=== PATIENT | female | born 1940 | race Caucasian/White ===

== ENCOUNTER 2016-12-14 05:03 | Inpatient (IN) | payer OTHER ==
[2016-12-11 14:37] VITALS: BMI 30.2
[~2016-12-14 05:03] MED LIST: BACITRACIN 15 GM TUBE TOPICAL OINTMENT TP ONE
[2016-12-14] MEDS ORDERED: VASOPRESSIN 20 UNITS/ML VIAL IV ONE (13:37)
[2016-12-14] MEDS ORDERED: BACITRACIN 15 GM TUBE TOPICAL OINTMENT ONE (13:37)
[2016-12-14] MEDS ORDERED: PROPOFOL 20 ML ONE (13:38)
[2016-12-14] MEDS ORDERED: ROCURONIUM BROMIDE 50 MG/5 ML VIAL ONE (13:39)
[2016-12-14] MEDS ORDERED: MIDAZOLAM HCL 2 MG/2 ML SINGLE DOSE VIAL ONE (13:39)
[2016-12-14] MEDS ORDERED: ceFAZolin SODIUM 1 GM VIAL IVPB ONE (14:22)
--- NOTE | 2016-12-14 14:22 | HP ---
Past Medical History - Primary Care Physician PCP:: Michael Lino - Admission Chief Complaint: pelvic pain, uterovaginal prolapse History of Present Illness: 76 yo f with hx of uterovagianl prolapse, cystorectocele admitted for vaginal hysterectomy, ant. and post repair, denies urinary incontinence rba to procedure , pessary .and no tx has discussed with patient .aware of all risks History Source: Patient Limitations to Obtaining History: No Limitations - Past Medical History Cardiovascular: Yes: HTN, Hyperlipdemia Endocrine: Yes: Hypothyroidism - Past Surgical History Hx Myomectomy: No Hx Transabdominal Cerclage: No - Advance Directives Advance Directives: Yes: Health Care Proxy - Smoking History Smoking history: Never smoked Have you smoked in the past 12 months: No - Alcohol/Substance Use Hx Alcohol Use: No - Social History History of Recent Travel: No Home Medications - Allergies Allergies/Adverse Reactions: Allergies Allergy/AdvReac Type Severity Reaction Status Date / Time No Known Drug Allergies Allergy Verified 12/14/16 12:52 - Home Medications Home Medications: Ambulatory Orders Aspirin [Aspirin EC] 81 mg PO DAILY 12/11/16 Atorvastatin Ca [Lipitor] 10 mg PO HS 12/11/16 Indapamide [Lozol (Nf) -] 2.5 mg PO DAILY 12/11/16 Levothyroxine [Synthroid -] 88 mcg PO DAILY 12/11/16 Niacin 500 mg PO DAILY 12/11/16 Ibuprofen [Motrin -] 600 mg PO QID #28 tablet 12/14/16 Review of Systems - Review of Systems Constitutional: reports: No Symptoms Eyes: reports: No Symptoms HENT: reports: No Symptoms Neck: reports: No Symptoms Cardiovascular: reports: No Symptoms Respiratory: reports: No Symptoms Gastrointestinal: reports: No Symptoms Genitourinary: reports: Frequency, Pain, Urgency Breasts: reports: No Symptoms Reported Musculoskeletal: reports: No Symptoms Integumentary: reports: No Symptoms Neurological: reports: No Symptoms Endocrine: reports: No Symptoms Hematology/Lymphatic: reports: No Symptoms Psychiatric: reports: No Symptoms Physical Exam-ADMISSIONS OFFICER Vital Signs: Vital Signs Temperature 97.6 F 12/14/16 12:53 Pulse Rate 78 12/14/16 12:53 Respiratory Rate 18 12/14/16 12:53 Blood Pressure 127/82 12/14/16 12:53 O2 Sat by Pulse Oximetry (%) 95 12/14/16 12:53 Constitutional: Yes: Well Nourished, No Distress, Calm Eyes: Yes: WNL, Conjunctiva Clear, EOM Intact HENT: Yes: WNL, Atraumatic, Normocephalic Neck: Yes: WNL, Supple, Trachea Midline Cardiovascular: Yes: WNL, Regular Rate and Rhythm Respiratory: Yes: WNL, Regular, CTA Bilaterally Gastrointestinal: Yes: WNL ...Rectal Exam: Yes: WNL Renal/: Yes: WNL External Genitalia: Yes: Normal Internal Exam Deferred: No Vaginal Exam: Yes: Normal (atrophic with cystorectocele) Cervix: Yes: Normal (out of vagina) Uterus: Yes: Normal, Retroverted Adnexa: Not Palpable: Left, Right Breast(s): Yes: WNL Musculoskeletal: Yes: WNL Extremities: Yes: WNL Edema: No Integumentary: Yes: WNL Neurological: Yes: WNL, Alert, Oriented ...Motor Strength: WNL Psychiatric: Yes: WNL, Alert, Oriented Problem List - Problem (1) Uterovaginal prolapse, complete Code(s): N81.3 - COMPLETE UTEROVAGINAL PROLAPSE Assessment/Plan vaginal hysterectomy, a.p repair, possible BSO
[2016-12-14] MEDS ORDERED: ceFAZolin SODIUM 1 GM VIAL ONE (14:26)
[2016-12-14] MEDS ORDERED: SODIUM CHLORIDE 0.9% P/F 10 ML VIAL IJ ONE (14:26)
[2016-12-14] MEDS ORDERED: DEXAMETHASONE SOD PHOSPHATE 4 MG/1 ML VIAL ONE (14:32)
[2016-12-14] MEDS ORDERED: KETOROLAC TROMETHAMINE 30 MG/1 ML VIAL ONE (15:46)
[2016-12-14] MEDS ORDERED: GLYCOPYRROLATE 0.2 MG/1 ML VIAL ONE (15:46)
[2016-12-14] MEDS ORDERED: LIDOCAINE HCL 4% TOPICAL SOLN (50 ML/BOTTLE) ONE (15:46)
[2016-12-14] MEDS ORDERED: NEOSTIGMINE METHYLSULFATE 0.5 MG/ML - 10 ML MDV ONE (15:47)
[2016-12-14] MEDS ORDERED: BACITRACIN 15 GM TUBE TOPICAL OINTMENT TP ONE (15:55)
[2016-12-14] MEDS ORDERED: LIDOCAINE HCL 2% 100 MG/5 ML DISP.SYRIN ONE (16:03)
[2016-12-14] MEDS ORDERED: PROMETHAZINE HCL 25 MG/1 ML VIAL IVPUSH PRN (16:12)
[2016-12-14] MEDS ORDERED: HYDROmorphone HCL CARPU-JECT 1 MG/1 ML DISP.SYRIN IVPB PRN (16:12)
[2016-12-14] MEDS ORDERED: IBUPROFEN 600 MG TABLET (FP) PO PRN (16:12)
[2016-12-14] MEDS ORDERED: IBUPROFEN 800 MG/8 ML IJ IVPB PRN (16:12)
[2016-12-14] MEDS ORDERED: ONDANSETRON 4 MG/2 ML VIAL IVPB PRN (16:12)
[2016-12-14] MEDS ORDERED: oxyCODONE HCL 5 MG TABLET PO PRN (16:12)
[2016-12-14] MEDS ORDERED: ONDANSETRON 4 MG/2 ML VIAL IVPUSH PRN (16:12)
[2016-12-14] MEDS ORDERED: ELECTROLYTE-148 SOLN 1,000 ML IV SCH (16:15)
[2016-12-14] MEDS ORDERED: LACTATED RINGERS SOLUTION 1,000 ML IV SCH (16:15)
[2016-12-14] MEDS ORDERED: CEFAZOLIN 1 GM/D5W 50 ML IVPB SCH (22:00)
[2016-12-14] MEDS ORDERED: ATORVASTATIN CA 10 MG TABLET (FP) PO SCH (22:00)
[2016-12-14] MEDS: CEFAZOLIN (PRE-DOCKED) 50 ML IVPB SCH (22:45)
--- NOTE | 2016-12-15 02:34 | OP ---
DATE OF OPERATION: 12/14/2016 PREOPERATIVE DIAGNOSIS: Uterovaginal prolapse, cystocele, rectocele. POSTOPERATIVE DIAGNOSIS: Uterovaginal prolapse, cystocele, rectocele. PROCEDURE: Vaginal hysterectomy, cystocele and rectocele repair, and perineoplasty. SURGEON: Michael Lino MD DIRECTOR ASSET: Day Tobias MD ESTIMATED BLOOD LOSS: 150 mL. ANESTHESIA: General. ANESTHESIOLOGIST: Nette Peacock MD OPERATION: Patient was taken to the operating room and underwent adequate general anesthesia. Examination under anesthesia revealed the cervix and part of the uterus in the vagina. There was a large cystocele and a moderate rectocele. The vaginal opening was gaping. With a weighted speculum in the vagina, the cervix was grasped with 2 single-toothed tenaculums and then the cervical area was circumferentially injected with dilute solution of vasopressin. With cautery, a circumferential incision was made around the cervix. Posterior vaginal mucosa was dissected from the cervix with blunt and sharp dissection. The posterior peritoneum was reached. The posterior peritoneum was entered. The weighted speculum was advanced into the cul-de-sac area. The bladder was further pushed up and then it was dissected also with blunt and sharp dissection with Metzenbaum scissors. Both sacral ligaments were identified, grasped with Sulaiman clamps, cut, and clamped with 0 Vicryl suture bilaterally. The sutures were held with Kandice clamps. The paracervical area was grasped with bipolar LigaSure cautery, cauterizing the ends and cut. The uterine artery was identified. At this time, the bladder was lifted and anterior peritoneum was entered. The uterine artery was grasped with Sulaiman clamps, cut, and the clamps were replaced with 0 Vicryl sutures bilaterally. Parametrium was grasped with bipolar cautery, cauterized, and cut and then the upper pedicle was reached. Two Sulaiman clamps were placed around the upper pedicle. The specimen was severed and then then pedicle was sutured with 0 Vicryl suture and then 0 Vicryl ties. Both ovaries were small and retracted. No abnormalities were found. Cul-de-sac area was clean with no lesions. The peritoneum was closed with 0 Vicryl continuous pursestring suture. Vaginal cuff was closed with interrupted sutures of 0 Vicryl. At this time, the cystocele repair was started by injecting the anterior vaginal mucosa with a dilute solution of vasopressin. The anterior vaginal mucosa was undermined with Metzenbaum scissors and bladder was from the mucosa. The bladder was from the anterior vaginal mucosa and then the mucosa was cut. The cystocele repair was completed with the pursestring suture of 3-0 Vicryl and then with interrupted sutures of 3-0 Vicryl for support. The anterior vaginal mucosa was closed with interrupted suture of 2-0 Vicryl. The posterior repair started by cutting the excess perineum of the skin. Posterior vaginal mucosa was undermined with Metzenbaum scissors and the rectum was from the mucosa and supported suture was placed and the muscles were brought together with 0 Vicryl suture. The posterior perineum was repaired in the episiotomy fashion in 3 layers. Echols was inserted with clear urine. Rectal examination showed no defect. Vagina was packed with 2-inch iodoform gauze. No bleeding seen. Patient tolerated the procedure well and left the OR in good condition. Urine was clear. Soumya [id number]
[2016-12-15] MEDS: CEFAZOLIN (PRE-DOCKED) 50 ML IVPB SCH ×2 (06:29→13:41)
[2016-12-15] MEDS ORDERED: LEVOTHYROXINE NA 88 MCG TABLET (FP) PO SCH (07:00)
[2016-12-15 08:13] LABS: MCH 31.5 pg (25.7-33.7); MCHC 33.4 g/dl (32.0-36.0); MEAN CELL VOLUME 94.3 fl (80-96); PLATELET COUNT 201 K/MM3 (134-434); RDW 13.6 % (11.6-15.6); WHITE BLOOD COUNT 14.3 K/mm3 (4.0-10.0)
--- NOTE | 2016-12-15 08:39 | PN ---
Progress Note (short form) - Note Progress Note: pod 1 s/p vaginal hysterectomy, ap repair c/o pelvic pressure, no vaginal bleeding CBC, BMP 12/15/16 06:00 Last Vital Signs Temp Pulse Resp BP Pulse Ox 98.9 F 81 20 124/72 97 12/15/16 05:56 12/15/16 05:56 12/15/16 05:56 12/15/16 05:56 12/14/16 20:05 abdomen soft, non tender, no cva perineum clean , no vaginal bleeding or discharge vaginal packing removed no calf tenderness impression pod 1 doing well plan ambulate, d/c ariza , monitor i/o . Problem List - Problems (1) Uterovaginal prolapse, complete Code(s): N81.3 - COMPLETE UTEROVAGINAL PROLAPSE
[2016-12-15 09:09] LABS: ALBUMIN 3.1 g/dl (3.4-5.0); ALK PHOS 98 U/L (45-117); ANION GAP 10 (8-16); CALCIUM 8.8 mg/dL (8.5-10.1); CO2 27 mmol/L (21-32); CREATININE 0.8 mg/dL (0.55-1.02); GLUCOSE,RANDOM 98 mg/dL (74-106); SGOT/AST 23 U/L (15-37); SGPT/ALT 29 U/L (12-78); TOT PROT 5.5 g/dl (6.4-8.2)
--- NOTE | 2016-12-15 09:38 | PN ---
Progress Note (short form) - Note Progress Note: POD #1 - s/p vaginal hysterectomy/perineoplasty/a-p repair under general anesthesia. Pt. doing well, resting comfortably in bed. Awake/alert. VSS. Good pain control. No apparent anesthetic complications noted. Pt. to be discharged later today.
[2016-12-15] MEDS ORDERED: ENOXAPARIN NA (PORCINE) 40 MG/0.4 ML DISP.SYRIN SQ SCH (10:00)
[2016-12-15] MEDS ORDERED: NIACIN 500 MG TABLET PO SCH (10:00)
[2016-12-15] MEDS ORDERED: ASPIRIN COATED 81 MG TABLET.EC PO SCH (10:00)
[2016-12-15] MEDS ORDERED: INDAPAMIDE 2.5 MG PO SCH (10:00)
[2016-12-15] MEDS ORDERED: PT OWN MED DRAWER 7, Y5N ONE (11:37)
[2016-12-15] MEDS ORDERED: DOCUSATE SODIUM 100 MG CAPSULE (FP) PO ONE (12:00)
[2016-12-15 13:40] VITALS: BP 114/64; PULSE 85; TEMP 98
--- NOTE | 2016-12-19 14:44 | PATH ---
Surgical Pathology Report Patient Name: SR Dontae ROBLES [facility]. Rec. #: [id number] /Age/Gender: 1940 (Age: 76) / F Account: [id number] Location: [address] [place] [address] Taken: 12/14/2016 Received: 12/15/2016 Reported: 12/19/2016 Physicians: Michael Lino M.D. Specimen(s) Received A: UTERUS AND CERVIX B: ANTERIOR VAGINAL MUCOSAL WALL C: POSTERIOR VAGINAL MUCOSAL WALL Clinical History Postmenopausal bleeding Final Diagnosis A. UTERUS AND CERVIX, TOTAL HYSTERECTOMY: CERVIX: ENDOCERVICAL POLYP. ENDOMETRIUM: FOCAL SIMPLE HYPERPLASIA WITHOUT CYTOLOGICAL ATYPIA; ENDOMETRIAL POLYP. 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 UTERINE SEROSA: WITHOUT SIGNIFICANT PATHOLOGIC CHANGES. B. VAGINAL MUCOSA WALL, ANTERIOR, EXCISION: BENIGN SQUAMOUS MUCOSA. C. VAGINAL MUCOSA WALL, POSTERIOR, EXCISION: BENIGN SQUAMOUS MUCOSA. Electronically Signed Newton Rivera M.D. Gross Description A. Received in formalin labeled "uterus and cervix" is a 31 g uterus with attached cervix and no attached adnexa. The specimen measures 6.7 cm from superior to inferior, 2.5 cm from left to right and 2.0 cm from anterior to posterior. The serosa is mckeon mann and smooth. The attached cervix measures 3 cm in length and averages 2 cm in diameter. The ectocervix is pink-mckeon and smooth. The endocervix displays a 1.5 x 0.8 x 0.6 cm polyp. The endometrial cavity measures 2.2 cm in length and 1.7 cm from cornu to cornu. The endometrium is mckeon and averages 0.1 cm in thickness. There are 2 intramural nodules present measuring 0.5 and 1.0 cm in greatest dimension. The cut surface of the intramural nodules is mckeon, firm to rubbery and displays whorled architecture. No areas of hemorrhage or necrosis are identified. The myometrium is mckeon and averages 0.8 cm in thickness. Mathematics Faculty Member sections are submitted in 8 cassettes as follows: 1-cervix with endocervical polyp; 2-additional cervix; 8-0-ajgxlhtujryiwz; 9-6-xznolrioyx nodules; 2-51-qklaabhfmf sections of endomyometrium, submitted entirely. B. Received in formalin labeled "vaginal mucosal wall anterior" is a 3.5 x 2.8 cm mckeon, irregular portion of soft tissue, consistent with a portion of vaginal mucosa. No discrete lesions are identified. Mathematics Faculty Member sections are submitted in one cassette. C. Received in formalin labeled "posterior vaginal mucosal wall" are 4 mckeon, irregular portions of soft tissue, consistent with portions of vaginal mucosa. The specimens range from 1.5 x 1.0 cm to 5.1 x 1.2 cm. Mathematics Faculty Member sections are submitted in one cassette. 12/15/2016 [facility]12/15/2016
== END 2016-12-15 15:10 | disposition home or self-care (01) | DRG 743 ==
LOC: JASUSAT 05:03 → JSAMEDAYSX 14:13 → J6S 19:57
PROVIDERS: ADMIT Obstetrics & Gynecology; ATTEND Obstetrics & Gynecology
PROC: 0JQC3ZZ Repair Pelvic Region Subcutaneous Tissue and Fascia, Percutaneous Approach (ICD-10-PCS; 2016-12-14)
PROC: 0WQNXZZ Repair Female Perineum, External Approach (ICD-10-PCS; 2016-12-14)
PROC: 0UT97ZZ Resection of Uterus, Via Natural or Artificial Opening (ICD-10-PCS; principal; 2016-12-14 15:00)
PROC: 0UTC7ZZ Resection of Cervix, Via Natural or Artificial Opening (ICD-10-PCS; 2016-12-14 15:00)
DX: N81.3 Complete uterovaginal prolapse (principal); N81.10 Cystocele, unspecified; I10 Essential (primary) hypertension; E78.5 Hyperlipidemia, unspecified; E03.9 Hypothyroidism, unspecified; N80.0 Endometriosis of uterus; D25.9 Leiomyoma of uterus, unspecified
CPT/HCPCS: 36415; 71020-TC; 80053; 85027; 86850; 86900; 86901; 88302-TC; 88307-TC; 94010; 94760

== ENCOUNTER 2017-08-07 08:13 | Inpatient (IN) | payer OTHER ==
[2017-08-01 10:07] VITALS: BMI 29.8
--- NOTE | 2017-08-03 11:50 | HP ---
Satellite [facility] - Chief Complaint Chief Complaint: left knee pain - Past Medical History Allergies/Adverse Reactions: Allergies Allergy/AdvReac Type Severity Reaction Status Date / Time No Known Drug Allergies Allergy Verified 08/01/17 09:52 Cardiovascular: Yes: HTN, Hyperlipdemia Endocrine: Yes: Hypothyroidism - Current Medications Current Medications: Home Medications Medication Instructions Recorded Atorvastatin Ca [Lipitor] 10 mg PO HS 12/11/16 Levothyroxine [Synthroid -] 88 mcg PO DAILY 12/11/16 Niacin 500 mg PO Q48H 12/11/16 Cholecalciferol (Vitamin D3) 5,000 unit PO Q48H 08/01/17 [Vitamin D3] Satellite Physical Exam - Physical Examination General Appearance: Well Nourished, Well Developed, Alert & Oriented x3 ENT: Clear Lung: Normal air movement Heart: Regular rate & rhythm Extremities: Other (left knee- + swelling, + ttp, decr rom, nvi xrays show grafe 4 tricompartmental djd) Neurological: Intact, Alert, Oriented Satellite Impression/Plan - Impression/Plan Impression: left knee djd Operative Procedure: left bishop tkr Date to be Performed: 08/07/17
[2017-08-07] MEDS ORDERED: CELECOXIB 200 MG CAPSULE PO ONE (08:38)
[2017-08-07] MEDS ORDERED: TRANEXAMIC ACID 1000 MG/10 ML VIAL IVPUSH ONE (08:38)
[2017-08-07] MEDS ORDERED: GABAPENTIN 300 MG CAPSULE (FP) PO ONE (08:38)
[2017-08-07] MEDS ORDERED: CEFAZOLIN 1 GM/D5W 1 GM/50 ML BAG IVPB ONE (08:38)
[2017-08-07] MEDS ORDERED: DEXAMETHASONE SOD PHOSPHATE/PF 10 MG/ML SDV ONE (09:49)
[2017-08-07] MEDS ORDERED: ROPIVACAINE HCL 0.5% 30ML VIAL ONE (09:50)
[2017-08-07] MEDS ORDERED: MIDAZOLAM HCL 2 MG/2 ML SINGLE DOSE VIAL ONE (09:50)
[2017-08-07] MEDS ORDERED: ceFAZolin SODIUM 1 GM VIAL ONE ×2 (09:54→10:14)
[2017-08-07] MEDS ORDERED: VANCOMYCIN 1,000 MG VIAL (RESTRICTED TO ID ONLY) ONE (09:54)
[2017-08-07] MEDS ORDERED: BUPIVACAINE LIPOSOME/PF (EXPAREL) 266 MG/20 ML VIAL ONE (10:15)
[2017-08-07] MEDS ORDERED: ONDANSETRON 4 MG/2 ML VIAL ONE (11:08)
[2017-08-07] MEDS ORDERED: DEXAMETHASONE SOD PHOSPHATE 4 MG/1 ML VIAL ONE (11:08)
[2017-08-07] MEDS ORDERED: VANCOMYCIN 1,000 MG VIAL (RESTRICTED TO ID ONLY) IVPB ONE (11:58)
[2017-08-07] MEDS ORDERED: ONDANSETRON 4 MG/2 ML VIAL IVPUSH PRN (12:24)
[2017-08-07] MEDS ORDERED: MAG HYDROX/AL HYDROX/SIMETH 30 ML UNIT-DOSE CUP PO PRN (12:24)
[2017-08-07] MEDS ORDERED: MAGNESIUM HYDROX 2400MG/30ML ORAL SUSPENSION 30 ML CUP PO PRN (12:24)
--- NOTE | 2017-08-07 12:28 | OP ---
Operative Note - Note: Operative Date: 08/07/17 (denia) Pre-Operative Diagnosis: left knee djd Operation: left bishop tkr Post-Operative Diagnosis: Same as Pre-op Surgeon: Long Varghese Director [employer]: Wilberto Caballero Anesthesiologist/GILL TENDER: Sai Knox Anesthesia: Spinal, Local Specimens Removed: bone fragments Estimated Blood Loss (mls): 100 Operative Report Dictated: Yes
[2017-08-07] MEDS ORDERED: LACTATED RINGERS SOLUTION 1,000 ML IV SCH (12:30)
[2017-08-07] MEDS ORDERED: oxyCODONE HCL 5 MG TABLET PO PRN (13:48)
[2017-08-07] MEDS: ACETAMINOPHEN 325 MG TABLET (FP) PO SCH ×2 (13:55→22:12)
--- NOTE | 2017-08-07 15:31 | SPEC ---
DATE OF OPERATION: 08/07/2017 PREOPERATIVE DIAGNOSIS: Degenerative joint disease, left knee. POSTOPERATIVE DIAGNOSIS: Degenerative joint disease, left knee. PROCEDURE: Left total knee replacement with robotic-assisted navigation (Makoplasty). SURGICAL ATTENDING: Long Varghese M.D. OPTICAL ELEMENT COATER: Edgardo Soto ANESTHESIA: Regional and spinal. CLOSURE: A cemented Triathlon knee system with a 4 PS femur, a 4 tibia, a 9 polyethylene, a 32 patella, number 1 Vicryl fascia, 0 and 2-0 subcutaneous, 3-0 Monocryl subcuticular with skin glue, 4-0 undyed Vicryl for pin sites. ESTIMATED BLOOD LOSS: Approximately 100 mL. COMPLICATIONS: None. CONDITION: To recovery room in stable condition. DESCRIPTION OF OPERATIVE PROCEDURE: Patient was taken to the operating room on August 07, 2017. Regional and spinal anesthesia was administered by the anesthesiologist. IV Kefzol and TXA were administered by the anesthesiologist. Well-padded pneumatic tourniquet was placed on the proximal thigh. The left lower extremity was prepped and draped in the usual sterile fashion. The leg was exsanguinated with an Esmarch bandage, and tourniquet was inflated to 275 mmHg. A 12 to 15-cm longitudinal midline incision was incised while centered over the patella. The dissection was carried down to the level of the extensor mechanism with sufficient flaps made to adequately perform the procedure. A medial parapatellar arthrotomy was then performed. We made a cuff of tissue on the patella for later closure. The patella was inverted, the knee was flexed up. The fat pad was excised. The subperiosteal dissection was on the anteromedial proximal tibia around towards the direction of the MCL. The ACL and the PCL were transected and debrided. The meniscal remnants of the medial and lateral meniscus were debrided and removed. This allowed the knee to be able to "be brought forward." The checkpoints were malleted into the tibia and into the femur. Two threaded pins were drilled anteroposteriorly proximal to the knee through the previous incision, through the anterior cortex, then just engaging the posterior cortex. To these pins was assembled the femoral navigation array. One handbreadth below the tibial tubercle, 2 stab incisions were used to drill 2 threaded pins in parallel fashion into the tibia, again through the anterior cortex and just engaging the posterior cortex. To these pins was fastened the tibial arrays. The knee was then registered with the navigation device with center of rotation of the hip, medial and lateral malleoli, both checkpoints, and multiple points on both the femur and the tibia to ensure excellent registration. The navigation device was directed off the "top of the bubbles" on both the femur and the tibia. The navigation passed within less than 0.5 mm to plan. The knee was then thoroughly inspected to remove all osteophytes both medially, laterally, and on the femur and the tibia, and whatever osteophytes were available for dissection. The knee was then taken to extension and to flexion, and stressed in both varus and valgus to assess flexion gaps. The virtual position of the components on the navigation device were then manipulated to optimize the position and to ensure equal gaps in both flexion and extension, and both medially and laterally. The robot was then brought into the field and was registered. The cuts were then made both on the femur and on the tibia as to plan. All osteophytes posteriorly were then removed as well. The gaps were then measured again in flexion and extension to be equal in both flexion and extension and medial and laterally. The femoral notch was then made, as we were doing a posterior stabilizing component, with the appropriate sized box. Trial reduction of the femur achieved excellent [id number] fit. A tibial baseplate of appropriate polyethylene thickness was "floated in the knee." It was ensured to be in the excellent position by navigation devices and was pinned in place. The knee was taken through a range of motion, and found to have excellent stability throughout flexion and extension. The patella was calibrated for thickness and osteotomized down to the appropriate level. The appropriate lollipop was used to drill the lug holes in the patella and the trial button was applied. The knee was taken through a range of motion and found to have excellent tracking of the patella, and patella from full extension to full flexion. Trial components were removed, the keel was punched and drilled, and a sclerotic bone on the tibia was drilled to help with cement interdigitation. The knee was thoroughly irrigated with the pulse antibiotic coconut cooker. The real components were then cemented in using monitored arrangement cement techniques with antibiotic cement, and pressurization and extension. After the cement was hardened, the knee was thoroughly inspected to remove any extra cement. The real polyethylene component was then clipped into place. Range of motion, stability, and tracking were as described earlier. The checkpoints and the pins were removed. The knee was thoroughly irrigated with antibiotic irrigation. Vancomycin powder was placed into the knee for antibiotic prophylaxis. The medial parapatellar arthrotomy was then closed using number 1 Vicryl interrupted suture. After closure of the deep layer, the knee was taken through a range of motion, and found to have excellent stability of the patella with no dislocation and no undue tension on the repair. The subcutaneous was pulse antibiotic irrigated, and was then closed with 0 and 2-0 Vicryl, 3-0 Monocryl subcuticular with the skin glue for the skin. The distal tibial pin site was irrigated thoroughly as well and then closed with 4-0 undyed Vicryl. A sterile Aquacel dressing was applied, followed by a Hinson dressing. Tourniquet was deflated. Total tourniquet time was approximately 75 minutes. No complications. Patient was awakened from anesthesia and transferred to recovery room in stable condition. Postoperative x-rays revealed excellent position of the components. Soumya [id number] [id number]
[2017-08-07] MEDS: CEFAZOLIN 1 GM/D5W 1 GM/50 ML BAG IVPB SCH (18:31)
[2017-08-07] MEDS: oxyCODONE HCL 5 MG TABLET PO PRN (18:31)
[2017-08-07] MEDS: ATORVASTATIN CA 10 MG TABLET (FP) PO SCH (22:12)
[2017-08-07] MEDS: GABAPENTIN 300 MG CAPSULE (FP) PO SCH (22:12)
[2017-08-07] MEDS: SENNOSIDES/DOCUSATE COMBO (SENNA PLUS) TABLET (UD) PO SCH (22:12)
[2017-08-08] MEDS: CEFAZOLIN 1 GM/D5W 1 GM/50 ML BAG IVPB SCH (02:00)
[2017-08-08] MEDS: ACETAMINOPHEN 325 MG TABLET (FP) PO SCH ×4 (02:00→19:43)
[2017-08-08] MEDS: LEVOTHYROXINE NA 88 MCG TABLET (FP) PO SCH (06:56)
[2017-08-08 08:51] LABS: HEMATOCRIT 32.9 % (32.4-45.2); HEMOGLOBIN 11.2 GM/dl (10.7-15.3); MCH 31.4 pg (25.7-33.7); MCHC 33.9 g/dl (32.0-36.0); MEAN CELL VOLUME 92.4 fl (80-96); MEAN PLT VOLUME 7.8 fl (7.5-11.1); PLATELET COUNT 192 K/MM3 (134-434); RBC 3.56 M/mm3 (3.60-5.2); RDW 12.9 % (11.6-15.6); WHITE BLOOD COUNT 13.1 K/mm3 (4.0-10.8)
--- NOTE | 2017-08-08 09:24 | PN ---
Progress Note (short form) - Note Progress Note: Ortho Pt seen and examined s/p left bishop tkr pod #1 Selected Entries 08/08/17 06:00 Temperature 98.3 F Pulse Rate 80 Respiratory 20 Rate Blood Pressure 142/68 Laboratory Tests 08/08/17 07:39 WBC 13.1 H Hgb 11.2 Hct 32.9 Plt Count 192 dressing c/d/i ,calf soft ,nt rom 0-50, nvi a/p PT dvt ppx pain control d/c planning
--- NOTE | 2017-08-08 09:56 | PN ---
Progress Note (short form) - Note Progress Note: ANESTHESIOLOGY POST-OP CHECK 77F s/p left total knee replacement under spinal anesthesia and PNB, POD #1. No acute complaints. Pain 0/10 and tolerable. Denies N/V currently. Ambulating and voiding. Vital Signs Temperature 98.3 F 08/08/17 06:00 Pulse Rate 80 08/08/17 06:00 Respiratory Rate 20 08/08/17 06:00 Blood Pressure 142/68 08/08/17 06:00 O2 Sat by Pulse Oximetry (%) 96 08/08/17 06:00 Active Medications Acetaminophen (Tylenol -) 650 mg PO Q6H [facility] Stop: 08/10/17 13:59 Last Admin: 08/08/17 02:00 Dose: Not Given Al Hydroxide/Mg Hydroxide (Mylanta Oral Suspension -) 30 ml PO Q4H PRN PRN Reason: DYSPEPSIA Aspirin (Asa -) 325 mg PO DAILY@0800 [facility] Atorvastatin Calcium (Lipitor -) 10 mg PO HS [facility] Last Admin: 08/07/17 22:12 Dose: 10 mg Gabapentin (Neurontin -) 300 mg PO BID [facility] Last Admin: 08/07/17 22:12 Dose: 300 mg Levothyroxine Sodium (Synthroid -) 88 mcg PO DAILY@0700 [facility] Last Admin: 08/08/17 06:56 Dose: 88 mcg Magnesium Hydroxide (Milk Of Magnesia -) 30 ml PO PRN PRN PRN Reason: CONSTIPATION Multivitamins/Minerals/Vitamin C (Tab-A-Vit -) 1 tab PO DAILY [facility] Niacin (Niacin) 500 mg PO Q2D@1000 [facility] Ondansetron HCl (Zofran Injection) 4 mg IVPUSH Q6H PRN PRN Reason: NAUSEA Oxycodone HCl (Roxicodone -) 5 mg PO Q3H PRN PRN Reason: PAIN LEVEL 1-5 Last Admin: 08/07/17 18:31 Dose: 5 mg Oxycodone HCl (Roxicodone -) 10 mg PO Q3H PRN PRN Reason: PAIN LEVEL 6-10 Pantoprazole Sodium (Protonix -) 40 mg PO DAILY [facility] Senna/Docusate Sodium (Pericolace -) 2 tablet PO BID [facility] Last Admin: 08/07/17 22:12 Dose: 2 tablet Gen: Awake, alert No apparent anesthesia complications. Pain controlled. Continue management as per primary team.
[2017-08-08] MEDS: ASPIRIN 325 MG TABLET PO SCH (09:59)
[2017-08-08] MEDS: MULTIVITAMINS (DAILY MVI) TABLET (FP) PO SCH (09:59)
[2017-08-08] MEDS: GABAPENTIN 300 MG CAPSULE (FP) PO SCH ×2 (09:59→21:40)
[2017-08-08] MEDS: oxyCODONE HCL 5 MG TABLET PO PRN (10:00)
[2017-08-08] MEDS: SENNOSIDES/DOCUSATE COMBO (SENNA PLUS) TABLET (UD) PO SCH ×2 (10:00→21:46)
[2017-08-08] MEDS: PANTOPRAZOLE 40 MG TABLET (FP) PO SCH (10:00)
[2017-08-08] MEDS: ATORVASTATIN CA 10 MG TABLET (FP) PO SCH (21:40)
[2017-08-09] MEDS: ACETAMINOPHEN 325 MG TABLET (FP) PO SCH ×4 (03:35→20:43)
[2017-08-09] MEDS: oxyCODONE HCL 5 MG TABLET PO PRN ×3 (06:14→16:14)
[2017-08-09] MEDS: LEVOTHYROXINE NA 88 MCG TABLET (FP) PO SCH (06:14)
[2017-08-09 08:07] LABS: HEMATOCRIT 33.1 % (32.4-45.2); MCH 30.9 pg (25.7-33.7); MCHC 33.2 g/dl (32.0-36.0); MEAN PLT VOLUME 7.7 fl (7.5-11.1); PLATELET COUNT 194 K/MM3 (134-434); RBC 3.56 M/mm3 (3.60-5.2); WHITE BLOOD COUNT 11.6 K/mm3 (4.0-10.8)
--- NOTE | 2017-08-09 08:19 | PN ---
Progress Note (short form) - Note Progress Note: Ortho Pt seen and examined s/p left bishop tkr pod #2 Selected Entries 08/09/17 05:48 Temperature 99.0 F Pulse Rate 90 Respiratory 18 Rate Blood Pressure 134/66 Laboratory Tests 08/09/17 07:20 WBC Pending Hgb Pending Hct Pending Plt Count Pending dressing slight drainage but not to borders ,calf soft ,nt rom 0-50, nvi a/p PT dvt ppx pain control d/c planning to snf wither today/tomorrow
[2017-08-09] MEDS: PANTOPRAZOLE 40 MG TABLET (FP) PO SCH (09:53)
[2017-08-09] MEDS: GABAPENTIN 300 MG CAPSULE (FP) PO SCH ×2 (09:54→21:17)
[2017-08-09] MEDS: ASPIRIN 325 MG TABLET PO SCH (09:54)
[2017-08-09] MEDS: MULTIVITAMINS (DAILY MVI) TABLET (FP) PO SCH (09:54)
[2017-08-09] MEDS ORDERED: NIACIN 500 MG TABLET PO SCH (10:00)
[2017-08-09] MEDS: ATORVASTATIN CA 10 MG TABLET (FP) PO SCH (21:17)
[2017-08-09] MEDS: SENNOSIDES/DOCUSATE COMBO (SENNA PLUS) TABLET (UD) PO SCH ×2 (21:17→21:20)
[2017-08-10] MEDS: ACETAMINOPHEN 325 MG TABLET (FP) PO SCH ×2 (02:22→08:46)
[2017-08-10 06:16] VITALS: BP 135/68; PULSE 90; TEMP 98.4
[2017-08-10] MEDS: LEVOTHYROXINE NA 88 MCG TABLET (FP) PO SCH (06:23)
[2017-08-10] MEDS ORDERED: PT OWN MED DRAWER 7, Y5N ONE (08:42)
[2017-08-10] MEDS: ASPIRIN 325 MG TABLET PO SCH (08:45)
[2017-08-10] MEDS: GABAPENTIN 300 MG CAPSULE (FP) PO SCH (09:22)
[2017-08-10] MEDS: MULTIVITAMINS (DAILY MVI) TABLET (FP) PO SCH (09:22)
[2017-08-10] MEDS: PANTOPRAZOLE 40 MG TABLET (FP) PO SCH (09:22)
[2017-08-10] MEDS: SENNOSIDES/DOCUSATE COMBO (SENNA PLUS) TABLET (UD) PO SCH (09:23)
--- NOTE | 2017-08-14 16:31 | PATH ---
Surgical Pathology Report Patient Name: FILOMENA ROBLES Med. Rec. #: [id number] /Age/Gender: 1940 (Age: 77) / F Account: [id number] Location: [facility] MED-SUR[facility] Taken: 08/07/2017 Received: 08/07/2017 Reported: 08/14/2017 Physicians: Long Varghese M.D. Specimen(s) Received LEFT KNEE BONES Clinical History Left knee osteoarthritis Final Diagnosis BONES, LEFT KNEE, TOTAL KNEE REPLACEMENT: DEGENERATIVE JOINT DISEASE. Electronically Signed Ella Huitron M.D. Gross Description Received in formalin labeled "left knee bones," is a 13.5 x 10.0 x 2.2 cm aggregate of multiple irregular portions of bone and soft tissue. The tibial plateau measures 7.0 x 5.1 x 1.5 cm. There is a 2.6 cm in greatest dimension area of eburnation identified. The remaining articular surfaces are mckeon-yellow and focally granular. The underlying trabecular bone is yellow and hard. General Warehouse Worker sections are submitted in one cassette, following decalcification. 08/09/2017 [facility]08/09/2017
== END 2017-08-10 10:45 | DRG 470 ==
LOC: FM/S 08:13
PROVIDERS: ADMIT Orthopaedic Surgery; ATTEND Orthopaedic Surgery
PROC: 8E0Y0CZ Robotic Assisted Procedure of Lower Extremity, Open Approach (ICD-10-PCS; 2017-08-07)
PROC: 0SRD0J9 Replacement of Left Knee Joint with Synthetic Substitute, Cemented, Open Approach (ICD-10-PCS; principal; 2017-08-07 11:00)
DX: M17.12 Unilateral primary osteoarthritis, left knee (principal); I10 Essential (primary) hypertension; E78.5 Hyperlipidemia, unspecified; E03.9 Hypothyroidism, unspecified
CPT/HCPCS: 36415; 73560-TC-LT-FY; 85027; 88304-TC; 88311-TC; 94010; 94760; 97116-GP; 97162-GP